=== PATIENT | male | born 1935 ===

== ENCOUNTER 2017-09-27 18:33 | Inpatient (IN) | payer MEDICARE ==
--- NOTE | 2017-09-27 19:13 | C.PDOC ---
History Of Present Illness 82 year old male presents to the ED for evaluation s/p fall 2 days ago. Patient states he was attempting to get up and then felt dizzy and fell. Fall was not witnessed and patient is unsure of possible LOC. Today he reports feeling very weak, nauseous, and dizzy. States he could barely get out of bed today. Also complaining of back pain, which is chronic in nature with no new changes. Patient tried to take blood pressure medication today but vomited it up. Denies any fever, chills, chest pain, SOB, urinary symptoms, numbness, or focal weakness. Time Seen by Provider: 09/27/17 19:12 Chief Complaint (Nursing): Dizziness/Lightheaded History Per: Patient History/Exam Limitations: no limitations Onset/Duration Of Symptoms: Days (x3) Current Symptoms Are (Timing): Still Present Activity At Onset Of Symptoms: Had Just Stood up Associated Symptoms Preceding Syncopal Episode: No Predromal Symptoms (Sudden Onset) Seizure Or Post-ictal Symptoms: None Fall Associated With With Symptoms: Yes Recent travel outside of the [place]: No Past Medical History Reviewed: Historical Data, Nursing Documentation, Vital Signs Vital Signs: Last Vital Signs Temp 98.2 F 09/27/17 19:06 Pulse 64 09/27/17 19:51 Resp 20 09/27/17 19:51 BP 177/63 H 09/27/17 19:51 Pulse Ox 98 09/27/17 21:23 - Medical History PMH: HTN Surgical History: No Surg Hx Family History: States: No Known Family Hx - Social History Hx Tobacco Use: No Hx Alcohol Use: No Hx Substance Use: No - Immunization History Hx Tetanus Toxoid Vaccination: No Hx Influenza Vaccination: No Hx Pneumococcal Vaccination: No Review Of Systems Constitutional: Positive for: Weakness. Negative for: Fever, Chills Cardiovascular: Negative for: Chest Pain Respiratory: Negative for: Shortness of Breath Gastrointestinal: Positive for: Nausea, Vomiting Musculoskeletal: Positive for: Back Pain Neurological: Positive for: Dizziness, Other (fall with possible LOC). Negative for: Weakness, Numbness Physical Exam - Physical Exam Appears: Non-toxic, No Acute Distress Skin: Warm, Dry Head: Normacephalic, No Laceration, Other (No evidence of trauma) Eye(s): bilateral: Normal Inspection Oral Mucosa: Moist Neck: Trachea Midline, Supple Chest: Symmetrical Cardiovascular: Rhythm Regular Respiratory: No Rales, No Rhonchi, No Wheezing Gastrointestinal/Abdominal: Soft, No Tenderness, No Distention Back: No Vertebral Tenderness, No Paraspinal Tenderness, No Other (step off deformity, or crepitus) Extremity: Normal ROM, No Pedal Edema, Capillary Refill (< 2 sec), Other (1 x 2 cm area of ecchymosis over lateral aspect of left bicep) Pulses: Left Dorsalis Pedis: Normal, Right Dorsalis Pedis: Normal Neurological/Psych: Oriented x3 ED Course And Treatment - Laboratory Results Result Diagrams: 09/27/17 19:42 09/27/17 19:42 ECG: Interpreted By Me, Viewed By Me ECG Rhythm: Sinus Rhythm (62), Nonspecific Changes O2 Sat by Pulse Oximetry: 98 Pulse Ox Interpretation: Normal - Radiology CXR: Interpreted by Me, Viewed By Me CXR Interpretation: Yes: Other (mild vasc congestion). No: Infiltrates, Fracture, Pnemothorax - CT Scan/US CT Head Other Rad Studies (CT/US): Read By Radiologist, Radiology Report Reviewed CT/US Interpretation: FINDINGS: BRAIN: Acute extra-axial hematoma overlying the right frontal lobe superolaterally, measuring 3.6 x. 0.7 x 3.2 cm, image 40 /series 4. This has a biconcave/lentiform shape, and it is suspicious for an. epidural versus subdural hematoma. No other significant abnormality identified. No evidence of acute intraventricular, subarachnoid, or. intraparenchymal hemorrhage. No evidence of midline shift, ventricular effacement, basilar cistern. effacement, or other significant intracranial mass effect. VENTRICLES: See above. BONES/JOINTS: No acute fractures or other acute bony abnormality noted. SOFT TISSUES: No acute abnormality of the visualized soft tissues is seen. SINUSES: Visualized paranasal sinuses appear clear. MASTOID AIR CELLS: Small amount of fluid in the left mastoid air cells inferiorly, compatible with. minimal mastoiditis. IMPRESSION: - 3.6 cm right frontal extra-axial hematoma, suspicious for an epidural versus subdural bleed. No significant associated mass effect. No fractures. - See above for remaining findings. Thank you for allowing us to participate in the care of your patient. Dictated and Authenticated by: Nidia Gracia MD. 09/27/2017 9: 18 PM Eastern Time ([place] & [place]) Progress Note: Ordered work-up including labs, CXR, EKG, and CT Head. Patient given IV fluids and Zofran Critical Care Time - Critical Care Note Total Time (in mins): 30 Documented critical care: time excludes all time spent performing seperately billable procedures. Disposition Discussed With DrJulianne: Luba Plaza Comment: accepted the pt on his service and took over the care at 10:30 PM Doctor Will See Patient In The: Hospital Counseled Patient/Family Regarding: Studies Performed, Diagnosis - Disposition Disposition: HOSPITALIZED Disposition Time: 19:13 Condition: FAIR Forms: [employer] (Danish) - POA Present On Arrival: Falls Or Trauma - Clinical Impression Clinical Impression: Dizziness, Subdural hematoma - Scribe Statement The provider has reviewed the documentation as recorded by the Luisa Almonte Provider Attestation: All medical record entries made by the Rodyibreji were at my direction and personally dictated by me. I have reviewed the chart and agree that the record accurately reflects my personal performance of the history, physical exam, medical decision making, and the department course for this patient. I have also personally directed, reviewed, and agree with the discharge instructions and disposition. Decision To Admit - Pt Status Changed To: Hospital Disposition Of: Inpatient - Admit Certification Admit to Inpatient:: After my assessment, the patient will require hospitalization for at least two midnights. This is because of the severity of symptoms shown, intensity of services needed, and/or the medical risk in this patient being treated as an outpatient. - InPatient: Physician Admission Certification: I certify that this patient requires 2 or more midnights of care for the following reason:: After my assessment, the patient will require hospitalization for at least two midnights. This is because of the severity of symptoms shown, intensity of services needed, and/or the medical risk in this patient being treated as an outpatient. - . Bed Request Type: Telemetry Admitting Physician: Luba Plaza Patient Diagnosis: Dizziness, Subdural hematoma
[2017-09-27 19:51] LABS: BASO % 0.4 % (0.0-2.0); EOS # 0.2 K/uL (0.0-0.7); EOS % 1.9 % (0.0-4.0); HEMOGLOBIN 11.5 g/dL (12.0-18.0); LYMPH # 1.7 K/uL (1.0-4.3); LYMPH % 17.1 % (20.0-40.0); MEAN CELL VOLUME 90.4 fL (80.0-94.0); MEAN CORPUSCULAR HEMOGLOBIN 30.7 pg (27.0-31.0); MEAN CORPUSCULAR HGB CONC 33.9 g/dL (33.0-37.0); MEAN PLATELET VOLUME 7.1 fL (7.2-11.7); MONO # 0.8 K/uL (0.0-0.8); NEUT # 7.4 K/uL (1.8-7.0); NEUT % 72.6 % (50.0-75.0); NRBC % 0.2 % (0.0-2.0); RBC 3.76 Mil/uL (4.40-5.90); RED CELL DISTRIBUTION WIDTH 12.3 % (11.5-14.5); WHITE BLOOD COUNT 10.2 K/uL (4.8-10.8)
[2017-09-27] MEDS ORDERED: Sodium Chloride 0.9% 1,000 ML ONE (19:55)
[2017-09-27 19:56] LABS: PROTHROMBIN TIME 11.1 SECONDS (9.7-12.2)
[2017-09-27 20:02] LABS: ALB/GLOB RATIO 1.1 (1.0-2.1); ALBUMIN 4.2 g/dL (3.5-5.0); CALCIUM 9.1 mg/dl (8.6-10.4); GFR AFRICAN-AMERICAN > 60; GFR NON-AFRICAN AMERICAN > 60; LIPASE 49 U/L (23-300)
[2017-09-27 20:03] LABS: ALT/SGPT 24 U/L (21-72); AST/SGOT 52 U/L (17-59); BLOOD UREA NITROGEN 14 mg/dL (9-20)
[2017-09-27 20:08] LABS: VENOUS BLOOD GAS PCO2 48 mmHg (40-60); VENOUS BLOOD GAS PO2 22 mm/Hg (30-55)
--- NOTE | 2017-09-27 21:18 | CT ---
EXAM: CT Head Without Intravenous Contrast EXAM DATE/TIME: 09/27/2017 7:14 PM CLINICAL HISTORY: 82 years old, male; Injury or trauma; Fall; Initial encounter; Blunt trauma (contusions or hematomas); Additional info: R/O bleed, fall TECHNIQUE: Axial computed tomography images of the head/brain without intravenous contrast. All CT scans at this facility use one or more dose reduction techniques, viz.: automated exposure control; ma/kV adjustment per patient size (including targeted exams where dose is matched to indication; i.e. head); or iterative reconstruction technique. Coronal and sagittal reformatted images were created and reviewed. COMPARISON: No relevant prior studies available. FINDINGS: BRAIN: Acute extra-axial hematoma overlying the right frontal lobe superolaterally, measuring 3.6 x 0.7 x 3.2 cm, image 40/series 4. This has a biconcave/lentiform shape, and it is suspicious for an epidural versus subdural hematoma. No other significant abnormality identified. No evidence of acute intraventricular, subarachnoid, or intraparenchymal hemorrhage. No evidence of midline shift, ventricular effacement, basilar cistern effacement, or other significant intracranial mass effect. VENTRICLES: See above. BONES/JOINTS: No acute fractures or other acute bony abnormality noted. SOFT TISSUES: No acute abnormality of the visualized soft tissues is seen. SINUSES: Visualized paranasal sinuses appear clear. MASTOID AIR CELLS: Small amount of fluid in the left mastoid air cells inferiorly, compatible with minimal mastoiditis. IMPRESSION: - 3.6 cm right frontal extra-axial hematoma, suspicious for an epidural versus subdural bleed. No significant associated mass effect. No fractures. - See above for remaining findings.
[2017-09-27 21:32] LABS: URINE BILIRUBIN NEGATIVE (NEGATIVE); URINE BLOOD NEGATIVE (NEGATIVE); URINE CLARITY Clear (Clear); URINE COLOR Yellow (YELLOW); URINE GLUCOSE (UA) NORMAL (Normal); URINE LEUKOCYTE ESTERASE NEG Leu/uL (Negative); URINE PROTEIN NEGATIVE (NEGATIVE); URINE UROBILINOGEN NORMAL mg/dL (0.2-1.0)
--- NOTE | 2017-09-27 23:33 | CP.PCM.CON ---
History of Present Illness - History of Present Illness History of Present Illness: 82 M with h/o htn, fell yesterday while going to bathroom when he felt dizzy, unwitnessed, needed help for family members to be picked up was fine afterwards , denied head injury, pain, this morning after he woke up could not walk. Complains of feeling dizzy, weak when he gets up, episodes of nausea and vomiting today. Patient in ER had head CT with right sided elliptical shape hematoma suggested on reading dd of subdural vs epidural, without pressure signs. Patient is awake, alert, following commands, including complex but unable to get up and walk, ambulation not tried due to patient being uncomfortable. PMH as above, chronic back pain PSH none Allergies NKDA Meds Coreg Family history not contributory Social Ex smoking, denied alcohol, lives with family. Review of Systems - Review of Systems All systems: reviewed and no additional remarkable complaints except (HPI) Past Patient History - Infectious Disease Hx of Infectious Diseases: None - Past Social History Smoking Status: Former Smoker Chewing Tobacco Use: No Cigar Use: No Alcohol: None Drugs: Denies Home Situation {Lives}: With Family - CARDIAC Hx Hypertension: Yes - PSYCHIATRIC Hx Substance Use: No - SURGICAL HISTORY Hx Surgeries: No - ANESTHESIA Hx Anesthesia: No Meds Allergies/Adverse Reactions: Allergies Allergy/AdvReac Type Severity Reaction Status Date / Time No Known Allergies Allergy Verified 09/27/17 18:47 - Medications Medications: Current Medications Sodium Chloride (Sodium Chloride 0.9%) 1,000 mls @ 100 mls/hr IV .Q10H HUMBERTO Physical Exam - Additional Findings Additional findings: * HEENT YADIRA * Neck supple, no rigidity * CVS regular, no gallop or rub, sinus on the monitor * Chest Clear, b/l * PA soft, nt, bs present * Ext no edema * [employer] B/l 5/5, Ext 5/5 b/l, no coordination difficulties b/l, speech normal, sensations normal, tone normal, plantars down going Results - Vital Signs Recent Vital Signs: Last Vital Signs Temp 98.2 F 09/27/17 19:06 Pulse 64 09/27/17 19:51 Resp 20 09/27/17 19:51 BP 177/63 H 09/27/17 19:51 Pulse Ox 98 09/27/17 22:31 - Labs Result Diagrams: 09/27/17 19:42 09/27/17 19:42 Labs: Laboratory Results - last 24 hr 09/27/17 09/27/17 09/27/17 19:03 19:42 19:42 WBC 10.2 RBC 3.76 L Hgb 11.5 L Hct 34.0 L MCV 90.4 MCH 30.7 MCHC 33.9 RDW 12.3 Plt Count 348 MPV 7.1 L Neut % (Auto) 72.6 Lymph % (Auto) 17.1 L [place] % (Auto) 8.0 Eos % (Auto) 1.9 Baso % (Auto) 0.4 Neut # (Auto) 7.4 H Lymph # (Auto) 1.7 [place] # (Auto) 0.8 Eos # (Auto) 0.2 Baso # (Auto) 0.0 PT INR APTT pO2 VBG pH VBG pCO2 VBG HCO3 VBG Total CO2 VBG O2 Sat (Calc) VBG Base Excess VBG Potassium Glucose Lactate Sodium 138 Potassium 4.4 Chloride 102 Carbon Dioxide 25 Anion Gap 16 BUN 14 Creatinine 0.7 L Est GFR ( Amer) > 60 Est GFR (Non-Af Amer) > 60 POC Glucose (mg/dL) 107 Random Glucose 107 Calcium 9.1 Magnesium 2.0 Total Bilirubin 0.9 AST 52 ALT 24 Alkaline Phosphatase 48 Troponin I < 0.0120 Total Protein 8.0 Albumin 4.2 Globulin 3.9 Albumin/Globulin Ratio 1.1 Lipase 49 Venous Blood Potassium Urine Color Urine Clarity Urine pH Ur Specific [place] Urine Protein Urine Glucose (UA) Urine Ketones Urine Blood Urine Nitrate Urine Bilirubin Urine Urobilinogen Ur Leukocyte Esterase Urine WBC (Auto) Urine RBC (Auto) 09/27/17 09/27/17 09/27/17 19:42 20:00 21:08 WBC RBC Hgb Hct MCV MCH MCHC RDW Plt Count MPV Neut % (Auto) Lymph % (Auto) [place] % (Auto) Eos % (Auto) Baso % (Auto) Neut # (Auto) Lymph # (Auto) [place] # (Auto) Eos # (Auto) Baso # (Auto) PT 11.1 INR 1.0 APTT 28 pO2 22 L VBG pH 7.40 VBG pCO2 48 VBG HCO3 26.4 VBG Total CO2 31.2 H VBG O2 Sat (Calc) 44.8 VBG Base Excess 4.0 H VBG Potassium 4.1 Glucose 108 Lactate 1.0 Sodium 139.0 Potassium Chloride 106.0 Carbon Dioxide Anion Gap BUN Creatinine Est GFR ( Amer) Est GFR (Non-Af Amer) POC Glucose (mg/dL) Random Glucose Calcium Magnesium Total Bilirubin AST ALT Alkaline Phosphatase Troponin I Total Protein Albumin Globulin Albumin/Globulin Ratio Lipase Venous Blood Potassium 4.1 Urine Color Yellow Urine Clarity Clear Urine pH 6.0 Ur Specific [place] 1.015 Urine Protein Negative Urine Glucose (UA) Normal Urine Ketones 1+ H Urine Blood Negative Urine Nitrate Negative Urine Bilirubin Negative Urine Urobilinogen Normal Ur Leukocyte Esterase Neg Urine WBC (Auto) 1 Urine RBC (Auto) < 1 Assessment & Plan - Assessment and Plan (Free Text) Assessment: * Elliptical IC bleeding, with clinical information, is slow subdural bleed rather epidural, and probably got worse overnight and hence symptoms, ambulatory dysfunction and dizzines and vomiting, significant brain atrophy, suspect slight efacement of the lateral ventrical on the right and some pressure symptoms, neuro surgery consulted, recommended repeat CT, neuro checks. * Fall seizure, aspiration precautions, keep head end elevated. * Gi/mechanical dvt prophylaxis * See orders for detail. Plan: See above Observe in ICU.
[2017-09-28] MEDS: Sodium Chloride 0.9% 1,000 ML IV SCH ×3 (02:07→16:01)
--- NOTE | 2017-09-28 05:06 | CT ---
EXAM: CT Head Without Intravenous Contrast CLINICAL HISTORY: 82 years old, male; Pain and signs and symptoms; Other: Subdural bleed; Patient HX: 09-27-17 images sent TECHNIQUE: Axial computed tomography images of the head/brain without intravenous contrast. All CT scans at this facility use one or more dose reduction techniques, viz.: automated exposure control; ma/kV adjustment per patient size (including targeted exams where dose is matched to indication; i.e. head); or iterative reconstruction technique. Coronal and sagittal reformatted images were created and reviewed. COMPARISON: CT - HEAD W/O CONTRAST 2017-09-27 19:41 FINDINGS: Brain: There is moderate diffuse cerebral atrophy present, consistent with this patient's age. Stable extra-axial hematoma along the RIGHT frontoparietal convexity measuring 7 mm. No midline shift. Ventricles: The ventricular system demonstrates mild diffuse compensatory enlargement. Bones/joints: Unremarkable. No acute fracture. Soft tissues: Unremarkable. Sinuses: Unremarkable as visualized. No acute sinusitis. Mastoid air cells: Unremarkable as visualized. No mastoid effusion. IMPRESSION: No significant interval change. Stable extra-axial hematoma along the RIGHT frontoparietal convexity.
[2017-09-28] MEDS ORDERED: Pantoprazole 40 mg Susp UD PO SCH (06:00)
[2017-09-28 06:32] LABS: BASO # 0.1 K/uL (0.0-0.2); BASO % 0.5 % (0.0-2.0); EOS # 0.1 K/uL (0.0-0.7); EOS % 1.4 % (0.0-4.0); HEMOGLOBIN 10.7 g/dL (12.0-18.0); LYMPH # 2.1 K/uL (1.0-4.3); LYMPH % 20.9 % (20.0-40.0); MEAN CELL VOLUME 90.9 fL (80.0-94.0); MEAN CORPUSCULAR HGB CONC 34.1 g/dL (33.0-37.0); MEAN PLATELET VOLUME 6.9 fL (7.2-11.7); MONO % 9.9 % (0.0-10.0); NEUT # 6.7 K/uL (1.8-7.0); NEUT % 67.3 % (50.0-75.0); RBC 3.44 Mil/uL (4.40-5.90); RED CELL DISTRIBUTION WIDTH 12.4 % (11.5-14.5)
[2017-09-28 06:46] LABS: ALB/GLOB RATIO 1.1 (1.0-2.1); ALBUMIN 3.5 g/dL (3.5-5.0); ALT/SGPT 21 U/L (21-72); AST/SGOT 39 U/L (17-59); BLOOD UREA NITROGEN 11 mg/dL (9-20); CALCIUM 8.8 mg/dl (8.6-10.4); GFR AFRICAN-AMERICAN > 60; GFR NON-AFRICAN AMERICAN > 60
[2017-09-28] MEDS: Pantoprazole 40 mg Susp UD PO SCH (10:21)
--- NOTE | 2017-09-28 10:40 | CP.CCUPN ---
<Cesario Amaya S - Last Filed: 09/28/17 14:36> CCU Subjective - Physician Review Subjective (Free Text): 09/28/17 10:30 Patient seen and examined. He is complaining of generalized weakness. Denies headache, dizziness, or other neurologic complaint at this point. CCU Objective - Vital Signs / Intake & Output Vital Signs (Last 4 hours): Vital Signs Temp Pulse Resp BP Pulse Ox 09/28/17 09:26 73 14 123/44 L 96 09/28/17 08:26 72 16 162/64 H 96 09/28/17 08:00 98.2 F 09/28/17 07:26 60 10 L 137/52 L 95 Intake and Output (Last 8hrs): Intake & Output 09/27/17 09/28/17 09/28/17 22:59 06:59 14:59 Intake Total 600 600 Output Total 300 0 Balance 300 600 Weight 180 lb 145 lb 8.081 oz Intake: Intake, IV Amount 600 400 Right Antecubital 600 400 Oral 200 Output: Urine 300 0 Urine, Voided 300 0 Other: # Bowel Movements 0 - Physical Exam Head: Positive for: Atraumatic, Normocephalic Pupils: Positive for: Sluggish Extroacular Muscles: Positive for: EOMI Conjunctiva: Positive for: Normal Mouth: Positive for: Moist Mucous Membranes Respiratory/Chest: Positive for: Clear to Auscultation. Negative for: Respiratory Distress, Wheezes, Rales, Rhonchi Cardiovascular: Positive for: Regular Rate and Rhythm, Normal S1, S2 Abdomen: Positive for: Normal Bowel Sounds. Negative for: Tenderness, Distention Upper Extremity: Positive for: Normal Inspection Lower Extremity: Positive for: Normal Inspection Neurological: Positive for: GCS=15, CN II-XII Intact, Other (4/5 muscle strength diffusely but no focal deficits) Skin: Positive for: Warm, Dry Psychiatric: Positive for: Alert - Medications Active Medications: Active Medications Generic Name Dose Route Start Last Admin Trade Name Freq PRN Reason Stop Dose Admin Carvedilol 6.25 mg 09/28/17 10:00 09/28/17 10:21 Coreg PO 6.25 mg BID HUMBERTO Administration Sodium Chloride 1,000 mls @ 100 mls/hr 09/27/17 19:15 09/28/17 06:30 Sodium Chloride 0.9% IV Not Given .Q10H HUMBERTO Pantoprazole Sodium 40 mg 09/28/17 10:00 09/28/17 10:21 Protonix Susp PO 40 mg DAILY HUMBERTO Administration - Patient Studies Lab Studies: Lab Studies 09/28/17 09/28/17 09/27/17 Range/Units 06:22 06:22 21:08 WBC 10.0 (4.8-10.8) K/uL RBC 3.44 L (4.40-5.90) Mil/uL Hgb 10.7 L (12.0-18.0) g/dL Hct 31.2 L (35.0-51.0) % MCV 90.9 (80.0-94.0) fL MCH 31.0 (27.0-31.0) pg MCHC 34.1 (33.0-37.0) g/dL RDW 12.4 (11.5-14.5) % Plt Count 344 (130-400) K/uL MPV 6.9 L (7.2-11.7) fL Neut % (Auto) 67.3 (50.0-75.0) % Lymph % (Auto) 20.9 (20.0-40.0) % Johnson % (Auto) 9.9 (0.0-10.0) % Eos % (Auto) 1.4 (0.0-4.0) % Baso % (Auto) 0.5 (0.0-2.0) % Neut # (Auto) 6.7 (1.8-7.0) K/uL Lymph # (Auto) 2.1 (1.0-4.3) K/uL Johnson # (Auto) 1.0 H (0.0-0.8) K/uL Eos # (Auto) 0.1 (0.0-0.7) K/uL Baso # (Auto) 0.1 (0.0-0.2) K/uL PT (9.7-12.2) SECONDS INR APTT (21-34) SECONDS pO2 (30-55) mm/Hg VBG pH (7.32-7.43) VBG pCO2 (40-60) mmHg VBG HCO3 mmol/L VBG Total CO2 (22-28) mmol/L VBG O2 Sat (Calc) (40-65) % VBG Base Excess (0.0-2.0) mmol/L VBG Potassium (3.6-5.2) mmol/L Glucose (75-110) mg/dl Lactate (0.7-2.1) mmol/L Sodium 139 (132-148) mmol/L Potassium 3.7 (3.6-5.2) mmol/L Chloride 105 (98-107) mmol/L Carbon Dioxide 24 (22-30) mmol/L Anion Gap 14 (10-20) BUN 11 (9-20) mg/dL Creatinine 0.7 L (0.8-1.5) mg/dL Est GFR ( Amer) > 60 Est GFR (Non-Af Amer) > 60 POC Glucose (mg/dL) (65-110) mg/dL Random Glucose 85 (75-110) mg/dL Calcium 8.8 (8.6-10.4) mg/dl Phosphorus 3.9 (2.5-4.5) mg/dL Magnesium 2.1 (1.6-2.3) mg/dL Total Bilirubin 0.7 (0.2-1.3) mg/dL AST 39 (17-59) U/L ALT 21 (21-72) U/L Alkaline Phosphatase 48 (38-126) U/L Troponin I (0.00-0.120) ng/mL Total Protein 6.8 (6.3-8.3) g/dL Albumin 3.5 (3.5-5.0) g/dL Globulin 3.3 (2.2-3.9) gm/dL Albumin/Globulin Ratio 1.1 (1.0-2.1) Lipase (23-300) U/L Venous Blood Potassium (3.6-5.2) mmol/L Urine Color Yellow (YELLOW) Urine Clarity Clear (Clear) Urine pH 6.0 (5.0-8.0) Ur Specific Mitchells 1.015 (1.003-1.030) Urine Protein Negative (NEGATIVE) mg/dL Urine Glucose (UA) Normal (Normal) mg/dL Urine Ketones 1+ H (NEGATIVE) mg/dL Urine Blood Negative (NEGATIVE) Urine Nitrate Negative (NEGATIVE) Urine Bilirubin Negative (NEGATIVE) Urine Urobilinogen Normal (0.2-1.0) mg/dL Ur Leukocyte Esterase Neg (Negative) Janette/uL Urine WBC (Auto) 1 (0-5) /hpf Urine RBC (Auto) < 1 (0-3) /hpf 09/27/17 09/27/17 09/27/17 Range/Units 20:00 19:42 19:42 WBC 10.2 (4.8-10.8) K/uL RBC 3.76 L (4.40-5.90) Mil/uL Hgb 11.5 L (12.0-18.0) g/dL Hct 34.0 L (35.0-51.0) % MCV 90.4 (80.0-94.0) fL MCH 30.7 (27.0-31.0) pg MCHC 33.9 (33.0-37.0) g/dL RDW 12.3 (11.5-14.5) % Plt Count 348 (130-400) K/uL MPV 7.1 L (7.2-11.7) fL Neut % (Auto) 72.6 (50.0-75.0) % Lymph % (Auto) 17.1 L (20.0-40.0) % Johnson % (Auto) 8.0 (0.0-10.0) % Eos % (Auto) 1.9 (0.0-4.0) % Baso % (Auto) 0.4 (0.0-2.0) % Neut # (Auto) 7.4 H (1.8-7.0) K/uL Lymph # (Auto) 1.7 (1.0-4.3) K/uL Johnson # (Auto) 0.8 (0.0-0.8) K/uL Eos # (Auto) 0.2 (0.0-0.7) K/uL Baso # (Auto) 0.0 (0.0-0.2) K/uL PT 11.1 (9.7-12.2) SECONDS INR 1.0 APTT 28 (21-34) SECONDS pO2 22 L (30-55) mm/Hg VBG pH 7.40 (7.32-7.43) VBG pCO2 48 (40-60) mmHg VBG HCO3 26.4 mmol/L VBG Total CO2 31.2 H (22-28) mmol/L VBG O2 Sat (Calc) 44.8 (40-65) % VBG Base Excess 4.0 H (0.0-2.0) mmol/L VBG Potassium 4.1 (3.6-5.2) mmol/L Glucose 108 (75-110) mg/dl Lactate 1.0 (0.7-2.1) mmol/L Sodium 139.0 (132-148) mmol/L Potassium (3.6-5.2) mmol/L Chloride 106.0 (98-107) mmol/L Carbon Dioxide (22-30) mmol/L Anion Gap (10-20) BUN (9-20) mg/dL Creatinine (0.8-1.5) mg/dL Est GFR ( Amer) Est GFR (Non-Af Amer) POC Glucose (mg/dL) (65-110) mg/dL Random Glucose (75-110) mg/dL Calcium (8.6-10.4) mg/dl Phosphorus (2.5-4.5) mg/dL Magnesium (1.6-2.3) mg/dL Total Bilirubin (0.2-1.3) mg/dL AST (17-59) U/L ALT (21-72) U/L Alkaline Phosphatase (38-126) U/L Troponin I (0.00-0.120) ng/mL Total Protein (6.3-8.3) g/dL Albumin (3.5-5.0) g/dL Globulin (2.2-3.9) gm/dL Albumin/Globulin Ratio (1.0-2.1) Lipase (23-300) U/L Venous Blood Potassium 4.1 (3.6-5.2) mmol/L Urine Color (YELLOW) Urine Clarity (Clear) Urine pH (5.0-8.0) Ur Specific Mitchells (1.003-1.030) Urine Protein (NEGATIVE) mg/dL Urine Glucose (UA) (Normal) mg/dL Urine Ketones (NEGATIVE) mg/dL Urine Blood (NEGATIVE) Urine Nitrate (NEGATIVE) Urine Bilirubin (NEGATIVE) Urine Urobilinogen (0.2-1.0) mg/dL Ur Leukocyte Esterase (Negative) Janette/uL Urine WBC (Auto) (0-5) /hpf Urine RBC (Auto) (0-3) /hpf 04/09/18 04/09/18 Range/Units 19:42 19:03 WBC (4.8-10.8) K/uL RBC (4.40-5.90) Mil/uL Hgb (12.0-18.0) g/dL Hct (35.0-51.0) % MCV (80.0-94.0) fL MCH (27.0-31.0) pg MCHC (33.0-37.0) g/dL RDW (11.5-14.5) % Plt Count (130-400) K/uL MPV (7.2-11.7) fL Neut % (Auto) (50.0-75.0) % Lymph % (Auto) (20.0-40.0) % Johnson % (Auto) (0.0-10.0) % Eos % (Auto) (0.0-4.0) % Baso % (Auto) (0.0-2.0) % Neut # (Auto) (1.8-7.0) K/uL Lymph # (Auto) (1.0-4.3) K/uL Johnson # (Auto) (0.0-0.8) K/uL Eos # (Auto) (0.0-0.7) K/uL Baso # (Auto) (0.0-0.2) K/uL PT (9.7-12.2) SECONDS INR APTT (21-34) SECONDS pO2 (30-55) mm/Hg VBG pH (7.32-7.43) VBG pCO2 (40-60) mmHg VBG HCO3 mmol/L VBG Total CO2 (22-28) mmol/L VBG O2 Sat (Calc) (40-65) % VBG Base Excess (0.0-2.0) mmol/L VBG Potassium (3.6-5.2) mmol/L Glucose (75-110) mg/dl Lactate (0.7-2.1) mmol/L Sodium 138 (132-148) mmol/L Potassium 4.4 (3.6-5.2) mmol/L Chloride 102 (98-107) mmol/L Carbon Dioxide 25 (22-30) mmol/L Anion Gap 16 (10-20) BUN 14 (9-20) mg/dL Creatinine 0.7 L (0.8-1.5) mg/dL Est GFR ( Amer) > 60 Est GFR (Non-Af Amer) > 60 POC Glucose (mg/dL) 107 (65-110) mg/dL Random Glucose 107 (75-110) mg/dL Calcium 9.1 (8.6-10.4) mg/dl Phosphorus (2.5-4.5) mg/dL Magnesium 2.0 (1.6-2.3) mg/dL Total Bilirubin 0.9 (0.2-1.3) mg/dL AST 52 (17-59) U/L ALT 24 (21-72) U/L Alkaline Phosphatase 48 (38-126) U/L Troponin I < 0.0120 (0.00-0.120) ng/mL Total Protein 8.0 (6.3-8.3) g/dL Albumin 4.2 (3.5-5.0) g/dL Globulin 3.9 (2.2-3.9) gm/dL Albumin/Globulin Ratio 1.1 (1.0-2.1) Lipase 49 (23-300) U/L Venous Blood Potassium (3.6-5.2) mmol/L Urine Color (YELLOW) Urine Clarity (Clear) Urine pH (5.0-8.0) Ur Specific Mitchells (1.003-1.030) Urine Protein (NEGATIVE) mg/dL Urine Glucose (UA) (Normal) mg/dL Urine Ketones (NEGATIVE) mg/dL Urine Blood (NEGATIVE) Urine Nitrate (NEGATIVE) Urine Bilirubin (NEGATIVE) Urine Urobilinogen (0.2-1.0) mg/dL Ur Leukocyte Esterase (Negative) Janette/uL Urine WBC (Auto) (0-5) /hpf Urine RBC (Auto) (0-3) /hpf Laboratory Results - last 24 hr 09/27/17 09/27/17 09/27/17 19:03 19:42 19:42 WBC 10.2 RBC 3.76 L Hgb 11.5 L Hct 34.0 L MCV 90.4 MCH 30.7 MCHC 33.9 RDW 12.3 Plt Count 348 MPV 7.1 L Neut % (Auto) 72.6 Lymph % (Auto) 17.1 L Johnson % (Auto) 8.0 Eos % (Auto) 1.9 Baso % (Auto) 0.4 Neut # (Auto) 7.4 H Lymph # (Auto) 1.7 Johnson # (Auto) 0.8 Eos # (Auto) 0.2 Baso # (Auto) 0.0 PT INR APTT pO2 VBG pH VBG pCO2 VBG HCO3 VBG Total CO2 VBG O2 Sat (Calc) VBG Base Excess VBG Potassium Glucose Lactate Sodium 138 Potassium 4.4 Chloride 102 Carbon Dioxide 25 Anion Gap 16 BUN 14 Creatinine 0.7 L Est GFR ( Amer) > 60 Est GFR (Non-Af Amer) > 60 POC Glucose (mg/dL) 107 Random Glucose 107 Calcium 9.1 Phosphorus Magnesium 2.0 Total Bilirubin 0.9 AST 52 ALT 24 Alkaline Phosphatase 48 Troponin I < 0.0120 Total Protein 8.0 Albumin 4.2 Globulin 3.9 Albumin/Globulin Ratio 1.1 Lipase 49 Venous Blood Potassium Urine Color Urine Clarity Urine pH Ur Specific Mitchells Urine Protein Urine Glucose (UA) Urine Ketones Urine Blood Urine Nitrate Urine Bilirubin Urine Urobilinogen Ur Leukocyte Esterase Urine WBC (Auto) Urine RBC (Auto) 09/27/17 09/27/17 09/27/17 19:42 20:00 21:08 WBC RBC Hgb Hct MCV MCH MCHC RDW Plt Count MPV Neut % (Auto) Lymph % (Auto) Johnson % (Auto) Eos % (Auto) Baso % (Auto) Neut # (Auto) Lymph # (Auto) Johnson # (Auto) Eos # (Auto) Baso # (Auto) PT 11.1 INR 1.0 APTT 28 pO2 22 L VBG pH 7.40 VBG pCO2 48 VBG HCO3 26.4 VBG Total CO2 31.2 H VBG O2 Sat (Calc) 44.8 VBG Base Excess 4.0 H VBG Potassium 4.1 Glucose 108 Lactate 1.0 Sodium 139.0 Potassium Chloride 106.0 Carbon Dioxide Anion Gap BUN Creatinine Est GFR ( Amer) Est GFR (Non-Af Amer) POC Glucose (mg/dL) Random Glucose Calcium Phosphorus Magnesium Total Bilirubin AST ALT Alkaline Phosphatase Troponin I Total Protein Albumin Globulin Albumin/Globulin Ratio Lipase Venous Blood Potassium 4.1 Urine Color Yellow Urine Clarity Clear Urine pH 6.0 Ur Specific Mitchells 1.015 Urine Protein Negative Urine Glucose (UA) Normal Urine Ketones 1+ H Urine Blood Negative Urine Nitrate Negative Urine Bilirubin Negative Urine Urobilinogen Normal Ur Leukocyte Esterase Neg Urine WBC (Auto) 1 Urine RBC (Auto) < 1 09/28/17 09/28/17 06:22 06:22 WBC 10.0 RBC 3.44 L Hgb 10.7 L Hct 31.2 L MCV 90.9 MCH 31.0 MCHC 34.1 RDW 12.4 Plt Count 344 MPV 6.9 L Neut % (Auto) 67.3 Lymph % (Auto) 20.9 Johnson % (Auto) 9.9 Eos % (Auto) 1.4 Baso % (Auto) 0.5 Neut # (Auto) 6.7 Lymph # (Auto) 2.1 Johnson # (Auto) 1.0 H Eos # (Auto) 0.1 Baso # (Auto) 0.1 PT INR APTT pO2 VBG pH VBG pCO2 VBG HCO3 VBG Total CO2 VBG O2 Sat (Calc) VBG Base Excess VBG Potassium Glucose Lactate Sodium 139 Potassium 3.7 Chloride 105 Carbon Dioxide 24 Anion Gap 14 BUN 11 Creatinine 0.7 L Est GFR ( Amer) > 60 Est GFR (Non-Af Amer) > 60 POC Glucose (mg/dL) Random Glucose 85 Calcium 8.8 Phosphorus 3.9 Magnesium 2.1 Total Bilirubin 0.7 AST 39 ALT 21 Alkaline Phosphatase 48 Troponin I Total Protein 6.8 Albumin 3.5 Globulin 3.3 Albumin/Globulin Ratio 1.1 Lipase Venous Blood Potassium Urine Color Urine Clarity Urine pH Ur Specific Mitchells Urine Protein Urine Glucose (UA) Urine Ketones Urine Blood Urine Nitrate Urine Bilirubin Urine Urobilinogen Ur Leukocyte Esterase Urine WBC (Auto) Urine RBC (Auto) EKG/Cardiology Studies: Cardiology / EKG Studies 09/27/17 18:57 EKG [ELECTROCARDIOGRAM] Stat Comment: Mode Of Transportation: PORTABLE Reason For Exam: Dizziness Fingerstick Blood Sugar Results: 107 Critical Care Progress Note - Nutrition Nutrition: Nutrition Category Date Time Status Heart Healthy Diet [DIET] Diets 09/28/17 Breakfast Active Assessment/Plan - Assessment and Plan (Free Text) Assessment: This is an 82 year old male with PMHx hypertension who presented with subdural bleeding on the right side. Neuro Awake, Verbal Continue to monitor with neurochecks Cardio Coreg 6.25 mg PO BID Pulm Saturating well on room air GI Heart Healthy Diet Protonix 40 mg PO daily Heme/onc Continue to monitor H/H Prophylaxis VTE contraindicated due to bleed Protonix 40 mg PO daily NS 100cc/hr Dispo: Continue to monitor in the ICU for now. Seen and Discussed with Dr. Ware <Presley Ware - Last Filed: 09/28/17 16:50> CCU Objective - Vital Signs / Intake & Output Vital Signs (Last 4 hours): Vital Signs Pulse Resp BP Pulse Ox 09/28/17 16:26 61 11 L 123/55 L 96 09/28/17 15:26 59 L 10 L 118/50 L 97 09/28/17 14:26 61 10 L 109/45 L 97 09/28/17 13:26 68 14 100/39 L 96 09/28/17 13:21 68 97 Intake and Output (Last 8hrs): Intake & Output 09/28/17 09/28/17 09/28/17 06:59 14:59 22:59 Intake Total 600 700 Output Total 300 0 Balance 300 700 Weight 145 lb 8.081 oz Intake: Intake, IV Amount 600 500 Right Antecubital 600 500 Oral 200 Output: Urine 300 0 Urine, Voided 300 0 Other: # Bowel Movements 0 - Medications Active Medications: Active Medications Generic Name Dose Route Start Last Admin Trade Name Freq PRN Reason Stop Dose Admin Carvedilol 6.25 mg 09/28/17 10:00 09/28/17 10:21 Coreg PO 6.25 mg BID HUMBERTO Administration Sodium Chloride 1,000 mls @ 100 mls/hr 09/27/17 19:15 09/28/17 16:01 Sodium Chloride 0.9% IV 100 mls/hr .Q10H HUMBERTO Administration Pantoprazole Sodium 40 mg 09/28/17 10:00 09/28/17 10:21 Protonix Susp PO 40 mg DAILY HUMBERTO Administration - Patient Studies Lab Studies: Lab Studies 09/28/17 09/28/17 09/27/17 Range/Units 06:22 06:22 21:08 WBC 10.0 (4.8-10.8) K/uL RBC 3.44 L (4.40-5.90) Mil/uL Hgb 10.7 L (12.0-18.0) g/dL Hct 31.2 L (35.0-51.0) % MCV 90.9 (80.0-94.0) fL MCH 31.0 (27.0-31.0) pg MCHC 34.1 (33.0-37.0) g/dL RDW 12.4 (11.5-14.5) % Plt Count 344 (130-400) K/uL MPV 6.9 L (7.2-11.7) fL Neut % (Auto) 67.3 (50.0-75.0) % Lymph % (Auto) 20.9 (20.0-40.0) % Johnson % (Auto) 9.9 (0.0-10.0) % Eos % (Auto) 1.4 (0.0-4.0) % Baso % (Auto) 0.5 (0.0-2.0) % Neut # (Auto) 6.7 (1.8-7.0) K/uL Lymph # (Auto) 2.1 (1.0-4.3) K/uL Johnson # (Auto) 1.0 H (0.0-0.8) K/uL Eos # (Auto) 0.1 (0.0-0.7) K/uL Baso # (Auto) 0.1 (0.0-0.2) K/uL PT (9.7-12.2) SECONDS INR APTT (21-34) SECONDS pO2 (30-55) mm/Hg VBG pH (7.32-7.43) VBG pCO2 (40-60) mmHg VBG HCO3 mmol/L VBG Total CO2 (22-28) mmol/L VBG O2 Sat (Calc) (40-65) % VBG Base Excess (0.0-2.0) mmol/L VBG Potassium (3.6-5.2) mmol/L Glucose (75-110) mg/dl Lactate (0.7-2.1) mmol/L Sodium 139 (132-148) mmol/L Potassium 3.7 (3.6-5.2) mmol/L Chloride 105 (98-107) mmol/L Carbon Dioxide 24 (22-30) mmol/L Anion Gap 14 (10-20) BUN 11 (9-20) mg/dL Creatinine 0.7 L (0.8-1.5) mg/dL Est GFR ( Amer) > 60 Est GFR (Non-Af Amer) > 60 POC Glucose (mg/dL) (65-110) mg/dL Random Glucose 85 (75-110) mg/dL Calcium 8.8 (8.6-10.4) mg/dl Phosphorus 3.9 (2.5-4.5) mg/dL Magnesium 2.1 (1.6-2.3) mg/dL Total Bilirubin 0.7 (0.2-1.3) mg/dL AST 39 (17-59) U/L ALT 21 (21-72) U/L Alkaline Phosphatase 48 (38-126) U/L Troponin I (0.00-0.120) ng/mL Total Protein 6.8 (6.3-8.3) g/dL Albumin 3.5 (3.5-5.0) g/dL Globulin 3.3 (2.2-3.9) gm/dL Albumin/Globulin Ratio 1.1 (1.0-2.1) Lipase (23-300) U/L Venous Blood Potassium (3.6-5.2) mmol/L Urine Color Yellow (YELLOW) Urine Clarity Clear (Clear) Urine pH 6.0 (5.0-8.0) Ur Specific Mitchells 1.015 (1.003-1.030) Urine Protein Negative (NEGATIVE) mg/dL Urine Glucose (UA) Normal (Normal) mg/dL Urine Ketones 1+ H (NEGATIVE) mg/dL Urine Blood Negative (NEGATIVE) Urine Nitrate Negative (NEGATIVE) Urine Bilirubin Negative (NEGATIVE) Urine Urobilinogen Normal (0.2-1.0) mg/dL Ur Leukocyte Esterase Neg (Negative) Janette/uL Urine WBC (Auto) 1 (0-5) /hpf Urine RBC (Auto) < 1 (0-3) /hpf 09/27/17 09/27/17 09/27/17 Range/Units 20:00 19:42 19:42 WBC 10.2 (4.8-10.8) K/uL RBC 3.76 L (4.40-5.90) Mil/uL Hgb 11.5 L (12.0-18.0) g/dL Hct 34.0 L (35.0-51.0) % MCV 90.4 (80.0-94.0) fL MCH 30.7 (27.0-31.0) pg MCHC 33.9 (33.0-37.0) g/dL RDW 12.3 (11.5-14.5) % Plt Count 348 (130-400) K/uL MPV 7.1 L (7.2-11.7) fL Neut % (Auto) 72.6 (50.0-75.0) % Lymph % (Auto) 17.1 L (20.0-40.0) % Johnson % (Auto) 8.0 (0.0-10.0) % Eos % (Auto) 1.9 (0.0-4.0) % Baso % (Auto) 0.4 (0.0-2.0) % Neut # (Auto) 7.4 H (1.8-7.0) K/uL Lymph # (Auto) 1.7 (1.0-4.3) K/uL Johnson # (Auto) 0.8 (0.0-0.8) K/uL Eos # (Auto) 0.2 (0.0-0.7) K/uL Baso # (Auto) 0.0 (0.0-0.2) K/uL PT 11.1 (9.7-12.2) SECONDS INR 1.0 APTT 28 (21-34) SECONDS pO2 22 L (30-55) mm/Hg VBG pH 7.40 (7.32-7.43) VBG pCO2 48 (40-60) mmHg VBG HCO3 26.4 mmol/L VBG Total CO2 31.2 H (22-28) mmol/L VBG O2 Sat (Calc) 44.8 (40-65) % VBG Base Excess 4.0 H (0.0-2.0) mmol/L VBG Potassium 4.1 (3.6-5.2) mmol/L Glucose 108 (75-110) mg/dl Lactate 1.0 (0.7-2.1) mmol/L Sodium 139.0 (132-148) mmol/L Potassium (3.6-5.2) mmol/L Chloride 106.0 (98-107) mmol/L Carbon Dioxide (22-30) mmol/L Anion Gap (10-20) BUN (9-20) mg/dL Creatinine (0.8-1.5) mg/dL Est GFR ( Amer) Est GFR (Non-Af Amer) POC Glucose (mg/dL) (65-110) mg/dL Random Glucose (75-110) mg/dL Calcium (8.6-10.4) mg/dl Phosphorus (2.5-4.5) mg/dL Magnesium (1.6-2.3) mg/dL Total Bilirubin (0.2-1.3) mg/dL AST (17-59) U/L ALT (21-72) U/L Alkaline Phosphatase (38-126) U/L Troponin I (0.00-0.120) ng/mL Total Protein (6.3-8.3) g/dL Albumin (3.5-5.0) g/dL Globulin (2.2-3.9) gm/dL Albumin/Globulin Ratio (1.0-2.1) Lipase (23-300) U/L Venous Blood Potassium 4.1 (3.6-5.2) mmol/L Urine Color (YELLOW) Urine Clarity (Clear) Urine pH (5.0-8.0) Ur Specific Mitchells (1.003-1.030) Urine Protein (NEGATIVE) mg/dL Urine Glucose (UA) (Normal) mg/dL Urine Ketones (NEGATIVE) mg/dL Urine Blood (NEGATIVE) Urine Nitrate (NEGATIVE) Urine Bilirubin (NEGATIVE) Urine Urobilinogen (0.2-1.0) mg/dL Ur Leukocyte Esterase (Negative) Janette/uL Urine WBC (Auto) (0-5) /hpf Urine RBC (Auto) (0-3) /hpf 09/27/17 09/27/17 Range/Units 19:42 19:03 WBC (4.8-10.8) K/uL RBC (4.40-5.90) Mil/uL Hgb (12.0-18.0) g/dL Hct (35.0-51.0) % MCV (80.0-94.0) fL MCH (27.0-31.0) pg MCHC (33.0-37.0) g/dL RDW (11.5-14.5) % Plt Count (130-400) K/uL MPV (7.2-11.7) fL Neut % (Auto) (50.0-75.0) % Lymph % (Auto) (20.0-40.0) % Johnson % (Auto) (0.0-10.0) % Eos % (Auto) (0.0-4.0) % Baso % (Auto) (0.0-2.0) % Neut # (Auto) (1.8-7.0) K/uL Lymph # (Auto) (1.0-4.3) K/uL Johnson # (Auto) (0.0-0.8) K/uL Eos # (Auto) (0.0-0.7) K/uL Baso # (Auto) (0.0-0.2) K/uL PT (9.7-12.2) SECONDS INR APTT (21-34) SECONDS pO2 (30-55) mm/Hg VBG pH (7.32-7.43) VBG pCO2 (40-60) mmHg VBG HCO3 mmol/L VBG Total CO2 (22-28) mmol/L VBG O2 Sat (Calc) (40-65) % VBG Base Excess (0.0-2.0) mmol/L VBG Potassium (3.6-5.2) mmol/L Glucose (75-110) mg/dl Lactate (0.7-2.1) mmol/L Sodium 138 (132-148) mmol/L Potassium 4.4 (3.6-5.2) mmol/L Chloride 102 (98-107) mmol/L Carbon Dioxide 25 (22-30) mmol/L Anion Gap 16 (10-20) BUN 14 (9-20) mg/dL Creatinine 0.7 L (0.8-1.5) mg/dL Est GFR ( Amer) > 60 Est GFR (Non-Af Amer) > 60 POC Glucose (mg/dL) 107 (65-110) mg/dL Random Glucose 107 (75-110) mg/dL Calcium 9.1 (8.6-10.4) mg/dl Phosphorus (2.5-4.5) mg/dL Magnesium 2.0 (1.6-2.3) mg/dL Total Bilirubin 0.9 (0.2-1.3) mg/dL AST 52 (17-59) U/L ALT 24 (21-72) U/L Alkaline Phosphatase 48 (38-126) U/L Troponin I < 0.0120 (0.00-0.120) ng/mL Total Protein 8.0 (6.3-8.3) g/dL Albumin 4.2 (3.5-5.0) g/dL Globulin 3.9 (2.2-3.9) gm/dL Albumin/Globulin Ratio 1.1 (1.0-2.1) Lipase 49 (23-300) U/L Venous Blood Potassium (3.6-5.2) mmol/L Urine Color (YELLOW) Urine Clarity (Clear) Urine pH (5.0-8.0) Ur Specific Mitchells (1.003-1.030) Urine Protein (NEGATIVE) mg/dL Urine Glucose (UA) (Normal) mg/dL Urine Ketones (NEGATIVE) mg/dL Urine Blood (NEGATIVE) Urine Nitrate (NEGATIVE) Urine Bilirubin (NEGATIVE) Urine Urobilinogen (0.2-1.0) mg/dL Ur Leukocyte Esterase (Negative) Janette/uL Urine WBC (Auto) (0-5) /hpf Urine RBC (Auto) (0-3) /hpf Laboratory Results - last 24 hr 09/27/17 09/27/17 09/27/17 19:03 19:42 19:42 WBC 10.2 RBC 3.76 L Hgb 11.5 L Hct 34.0 L MCV 90.4 MCH 30.7 MCHC 33.9 RDW 12.3 Plt Count 348 MPV 7.1 L Neut % (Auto) 72.6 Lymph % (Auto) 17.1 L Johnson % (Auto) 8.0 Eos % (Auto) 1.9 Baso % (Auto) 0.4 Neut # (Auto) 7.4 H Lymph # (Auto) 1.7 Johnson # (Auto) 0.8 Eos # (Auto) 0.2 Baso # (Auto) 0.0 PT INR APTT pO2 VBG pH VBG pCO2 VBG HCO3 VBG Total CO2 VBG O2 Sat (Calc) VBG Base Excess VBG Potassium Glucose Lactate Sodium 138 Potassium 4.4 Chloride 102 Carbon Dioxide 25 Anion Gap 16 BUN 14 Creatinine 0.7 L Est GFR ( Amer) > 60 Est GFR (Non-Af Amer) > 60 POC Glucose (mg/dL) 107 Random Glucose 107 Calcium 9.1 Phosphorus Magnesium 2.0 Total Bilirubin 0.9 AST 52 ALT 24 Alkaline Phosphatase 48 Troponin I < 0.0120 Total Protein 8.0 Albumin 4.2 Globulin 3.9 Albumin/Globulin Ratio 1.1 Lipase 49 Venous Blood Potassium Urine Color Urine Clarity Urine pH Ur Specific Mitchells Urine Protein Urine Glucose (UA) Urine Ketones Urine Blood Urine Nitrate Urine Bilirubin Urine Urobilinogen Ur Leukocyte Esterase Urine WBC (Auto) Urine RBC (Auto) 09/27/17 09/27/17 09/27/17 19:42 20:00 21:08 WBC RBC Hgb Hct MCV MCH MCHC RDW Plt Count MPV Neut % (Auto) Lymph % (Auto) Johnson % (Auto) Eos % (Auto) Baso % (Auto) Neut # (Auto) Lymph # (Auto) Johnson # (Auto) Eos # (Auto) Baso # (Auto) PT 11.1 INR 1.0 APTT 28 pO2 22 L VBG pH 7.40 VBG pCO2 48 VBG HCO3 26.4 VBG Total CO2 31.2 H VBG O2 Sat (Calc) 44.8 VBG Base Excess 4.0 H VBG Potassium 4.1 Glucose 108 Lactate 1.0 Sodium 139.0 Potassium Chloride 106.0 Carbon Dioxide Anion Gap BUN Creatinine Est GFR ( Amer) Est GFR (Non-Af Amer) POC Glucose (mg/dL) Random Glucose Calcium Phosphorus Magnesium Total Bilirubin AST ALT Alkaline Phosphatase Troponin I Total Protein Albumin Globulin Albumin/Globulin Ratio Lipase Venous Blood Potassium 4.1 Urine Color Yellow Urine Clarity Clear Urine pH 6.0 Ur Specific Mitchell[place] 1.015 Urine Protein Negative Urine Glucose (UA) Normal Urine Ketones 1+ H Urine Blood Negative Urine Nitrate Negative Urine Bilirubin Negative Urine Urobilinogen Normal Ur Leukocyte Esterase Neg Urine WBC (Auto) 1 Urine RBC (Auto) < 1 09/28/17 09/28/17 06:22 06:22 WBC 10.0 RBC 3.44 L Hgb 10.7 L Hct 31.2 L MCV 90.9 MCH 31.0 MCHC 34.1 RDW 12.4 Plt Count 344 MPV 6.9 L Neut % (Auto) 67.3 Lymph % (Auto) 20.9 Johnson % (Auto) 9.9 Eos % (Auto) 1.4 Baso % (Auto) 0.5 Neut # (Auto) 6.7 Lymph # (Auto) 2.1 Johnson # (Auto) 1.0 H Eos # (Auto) 0.1 Baso # (Auto) 0.1 PT INR APTT pO2 VBG pH VBG pCO2 VBG HCO3 VBG Total CO2 VBG O2 Sat (Calc) VBG Base Excess VBG Potassium Glucose Lactate Sodium 139 Potassium 3.7 Chloride 105 Carbon Dioxide 24 Anion Gap 14 BUN 11 Creatinine 0.7 L Est GFR ( Amer) > 60 Est GFR (Non-Af Amer) > 60 POC Glucose (mg/dL) Random Glucose 85 Calcium 8.8 Phosphorus 3.9 Magnesium 2.1 Total Bilirubin 0.7 AST 39 ALT 21 Alkaline Phosphatase 48 Troponin I Total Protein 6.8 Albumin 3.5 Globulin 3.3 Albumin/Globulin Ratio 1.1 Lipase Venous Blood Potassium Urine Color Urine Clarity Urine pH Ur Specific Mitchells Urine Protein Urine Glucose (UA) Urine Ketones Urine Blood Urine Nitrate Urine Bilirubin Urine Urobilinogen Ur Leukocyte Esterase Urine WBC (Auto) Urine RBC (Auto) EKG/Cardiology Studies: Cardiology / EKG Studies 09/27/17 18:57 EKG [ELECTROCARDIOGRAM] Stat Comment: Mode Of Transportation: PORTABLE Reason For Exam: Dizziness Critical Care Progress Note - Nutrition Nutrition: Nutrition Category Date Time Status Heart Healthy Diet [DIET] Diets 09/28/17 Breakfast Active Attending/Attestation - Attestation I have personally seen and examined this patient.: Yes I have fully participated in the care of the patient.: Yes I have reviewed all pertinent clinical information: Yes Notes (Text): 09/28/17 16:49 Patient seen and examinedin the intensive care unit. No change in repeat CAT scan of head Seen by neurosurgery Stable for transfer to floor
--- NOTE | 2017-09-28 11:20 | RAD ---
PROCEDURE: CHEST RADIOGRAPH, 1 VIEW HISTORY: SOB COMPARISON: None FINDINGS: LUNGS: Clear. PLEURA: No pneumothorax or pleural fluid seen. CARDIOVASCULAR: No radiographic findings to suggest acute or significant cardiovascular disease. OSSEOUS STRUCTURES: No significant abnormalities. VISUALIZED UPPER ABDOMEN: Normal. OTHER FINDINGS: None. IMPRESSION: No active disease. Concordant results with the preliminary interpretation rendered by the emergency department physician procedure.
--- NOTE | 2017-09-28 16:09 | CP.PCM.PN ---
Subjective - Date & Time of Evaluation Date of Evaluation: 09/28/17 Time of Evaluation: 16:08 - Subjective Subjective: minimal r sdh no mass effect stable over 2ct studies no surgery indicated Objective - Vital Signs/Intake and Output Vital Signs (last 24 hours): Temp Pulse Resp BP Pulse Ox 98.2 F 68 14 132/49 L 97 09/28/17 08:00 09/28/17 13:21 09/28/17 11:26 09/28/17 11:26 09/28/17 13:21 Intake and Output: 09/28/17 09/28/17 06:59 18:59 Intake Total 600 700 Output Total 300 0 Balance 300 700 - Medications Medications: Current Medications Carvedilol (Coreg) 6.25 mg PO BID [facility] Last Admin: 09/28/17 10:21 Dose: 6.25 mg Sodium Chloride (Sodium Chloride 0.9%) 1,000 mls @ 100 mls/hr IV .Q10H [facility] Last Admin: 09/28/17 16:01 Dose: 100 mls/hr Pantoprazole Sodium (Protonix Susp) 40 mg PO DAILY [facility] Last Admin: 09/28/17 10:21 Dose: 40 mg - Labs Labs: 09/28/17 06:22 09/28/17 06:22 PT 11.1 SECONDS (9.7-12.2) 09/27/17 19:42 INR 1.0 09/27/17 19:42 APTT 28 SECONDS (21-34) 09/27/17 19:42
--- NOTE | 2017-09-28 17:07 | CARD ---
APPROVED REPORT EKG Measurement Heart [id number] <Conclusion> Normal sinus rhythm Normal ECG
--- NOTE | 2017-09-28 18:19 | CP.PCM.HP ---
Past Patient History - Infectious Disease Hx of Infectious Diseases: None - Past Medical History & Family History Past Medical History?: Yes - Past Social History Smoking Status: Never Smoked - CARDIAC Hx Hypertension: Yes - NEUROLOGICAL Other/Comment: SDH - HEENT Other/Comment: does not wear glasses - RENAL Hx Chronic Kidney Disease: No - MUSCULOSKELETAL/RHEUMATOLOGICAL Hx Back Pain: Yes Hx Falls: Yes - PSYCHIATRIC Hx Substance Use: No - SURGICAL HISTORY Hx Surgeries: No - ANESTHESIA Hx Anesthesia: No Meds Allergies/Adverse Reactions: Allergies Allergy/AdvReac Type Severity Reaction Status Date / Time No Known Allergies Allergy Verified 09/27/17 18:47 Physical Exam - Constitutional Appears: Well - Head Exam Head Exam: ATRAUMATIC, NORMAL INSPECTION, NORMOCEPHALIC - Eye Exam Eye Exam: EOMI, Normal appearance, PERRL Pupil Exam: NORMAL ACCOMODATION, PERRL - ENT Exam ENT Exam: Mucous Membranes Moist, Normal Exam - Neck Exam Neck exam: Positive for: Normal Inspection - Respiratory Exam Respiratory Exam: Decreased Breath Sounds - Cardiovascular Exam Cardiovascular Exam: REGULAR RHYTHM, +S1, +S2 - GI/Abdominal Exam GI & Abdominal Exam: Diminished Bowel Sounds, Soft - Rectal Exam Rectal Exam: Deferred Results - Vital Signs Recent Vital Signs: Last Vital Signs Temp 98.2 F 09/28/17 16:00 Pulse 77 09/28/17 17:33 Resp 15 09/28/17 17:33 BP 140/62 09/28/17 17:33 Pulse Ox 97 09/28/17 17:33 - Labs Result Diagrams: 09/28/17 06:22 09/28/17 06:22 Labs: Laboratory Results - last 24 hr 09/27/17 09/27/17 09/27/17 19:03 19:42 19:42 WBC 10.2 RBC 3.76 L Hgb 11.5 L Hct 34.0 L MCV 90.4 MCH 30.7 MCHC 33.9 RDW 12.3 Plt Count 348 MPV 7.1 L Neut % (Auto) 72.6 Lymph % (Auto) 17.1 L [place] % (Auto) 8.0 Eos % (Auto) 1.9 Baso % (Auto) 0.4 Neut # (Auto) 7.4 H Lymph # (Auto) 1.7 [place] # (Auto) 0.8 Eos # (Auto) 0.2 Baso # (Auto) 0.0 PT INR APTT pO2 VBG pH VBG pCO2 VBG HCO3 VBG Total CO2 VBG O2 Sat (Calc) VBG Base Excess VBG Potassium Glucose Lactate Sodium 138 Potassium 4.4 Chloride 102 Carbon Dioxide 25 Anion Gap 16 BUN 14 Creatinine 0.7 L Est GFR ( Amer) > 60 Est GFR (Non-Af Amer) > 60 POC Glucose (mg/dL) 107 Random Glucose 107 Calcium 9.1 Phosphorus Magnesium 2.0 Total Bilirubin 0.9 AST 52 ALT 24 Alkaline Phosphatase 48 Troponin I < 0.0120 Total Protein 8.0 Albumin 4.2 Globulin 3.9 Albumin/Globulin Ratio 1.1 Lipase 49 Venous Blood Potassium Urine Color Urine Clarity Urine pH Ur Specific [place] Urine Protein Urine Glucose (UA) Urine Ketones Urine Blood Urine Nitrate Urine Bilirubin Urine Urobilinogen Ur Leukocyte Esterase Urine WBC (Auto) Urine RBC (Auto) 09/27/17 09/27/17 09/27/17 19:42 20:00 21:08 WBC RBC Hgb Hct MCV MCH MCHC RDW Plt Count MPV Neut % (Auto) Lymph % (Auto) [place] % (Auto) Eos % (Auto) Baso % (Auto) Neut # (Auto) Lymph # (Auto) [place] # (Auto) Eos # (Auto) Baso # (Auto) PT 11.1 INR 1.0 APTT 28 pO2 22 L VBG pH 7.40 VBG pCO2 48 VBG HCO3 26.4 VBG Total CO2 31.2 H VBG O2 Sat (Calc) 44.8 VBG Base Excess 4.0 H VBG Potassium 4.1 Glucose 108 Lactate 1.0 Sodium 139.0 Potassium Chloride 106.0 Carbon Dioxide Anion Gap BUN Creatinine Est GFR ( Amer) Est GFR (Non-Af Amer) POC Glucose (mg/dL) Random Glucose Calcium Phosphorus Magnesium Total Bilirubin AST ALT Alkaline Phosphatase Troponin I Total Protein Albumin Globulin Albumin/Globulin Ratio Lipase Venous Blood Potassium 4.1 Urine Color Yellow Urine Clarity Clear Urine pH 6.0 Ur Specific [place] 1.015 Urine Protein Negative Urine Glucose (UA) Normal Urine Ketones 1+ H Urine Blood Negative Urine Nitrate Negative Urine Bilirubin Negative Urine Urobilinogen Normal Ur Leukocyte Esterase Neg Urine WBC (Auto) 1 Urine RBC (Auto) < 1 09/28/17 09/28/17 06:22 06:22 WBC 10.0 RBC 3.44 L Hgb 10.7 L Hct 31.2 L MCV 90.9 MCH 31.0 MCHC 34.1 RDW 12.4 Plt Count 344 MPV 6.9 L Neut % (Auto) 67.3 Lymph % (Auto) 20.9 [place] % (Auto) 9.9 Eos % (Auto) 1.4 Baso % (Auto) 0.5 Neut # (Auto) 6.7 Lymph # (Auto) 2.1 [place] # (Auto) 1.0 H Eos # (Auto) 0.1 Baso # (Auto) 0.1 PT INR APTT pO2 VBG pH VBG pCO2 VBG HCO3 VBG Total CO2 VBG O2 Sat (Calc) VBG Base Excess VBG Potassium Glucose Lactate Sodium 139 Potassium 3.7 Chloride 105 Carbon Dioxide 24 Anion Gap 14 BUN 11 Creatinine 0.7 L Est GFR ( Amer) > 60 Est GFR (Non-Af Amer) > 60 POC Glucose (mg/dL) Random Glucose 85 Calcium 8.8 Phosphorus 3.9 Magnesium 2.1 Total Bilirubin 0.7 AST 39 ALT 21 Alkaline Phosphatase 48 Troponin I Total Protein 6.8 Albumin 3.5 Globulin 3.3 Albumin/Globulin Ratio 1.1 Lipase Venous Blood Potassium Urine Color Urine Clarity Urine pH Ur Specific [place] Urine Protein Urine Glucose (UA) Urine Ketones Urine Blood Urine Nitrate Urine Bilirubin Urine Urobilinogen Ur Leukocyte Esterase Urine WBC (Auto) Urine RBC (Auto)
--- NOTE | 2017-09-29 06:47 | CP.PCM.CON ---
History of Present Illness - History of Present Illness History of Present Illness: CONSULT DICTATED S/P FALL - HEADACHE SDH RT FROTO PARIETAL WORSENING [place] MORNING REPEAT CAT NOW MRI/EEG Past Patient History - Infectious Disease Hx of Infectious Diseases: None - Past Medical History & Family History Past Medical History?: Yes - Past Social History Smoking Status: Never Smoked - CARDIAC Hx Hypertension: Yes - NEUROLOGICAL Other/Comment: SDH - HEENT Other/Comment: does not wear glasses - RENAL Hx Chronic Kidney Disease: No - MUSCULOSKELETAL/RHEUMATOLOGICAL Hx Back Pain: Yes Hx Falls: Yes - PSYCHIATRIC Hx Substance Use: No - SURGICAL HISTORY Hx Surgeries: No - ANESTHESIA Hx Anesthesia: No Meds Allergies/Adverse Reactions: Allergies Allergy/AdvReac Type Severity Reaction Status Date / Time No Known Allergies Allergy Verified 09/27/17 18:47 - Medications Medications: Current Medications Acetaminophen (Tylenol 325mg Tab) 650 mg PO Q6 PRN PRN Reason: Pain, moderate (4-7) Last Admin: 09/29/17 03:27 Dose: 650 mg Carvedilol (Coreg) 6.25 mg PO BID [facility] Last Admin: 09/28/17 17:34 Dose: 6.25 mg Pantoprazole Sodium (Protonix Susp) 40 mg PO DAILY [facility] Last Admin: 09/28/17 10:21 Dose: 40 mg Results - Vital Signs Recent Vital Signs: Last Vital Signs Temp 98.2 F 09/28/17 16:00 Pulse 84 09/29/17 03:00 Resp 17 09/29/17 03:00 BP 133/72 09/29/17 02:26 Pulse Ox 97 09/29/17 03:00 - Labs Result Diagrams: 09/28/17 06:22 09/28/17 06:22 Labs: Laboratory Results - last 24 hr 09/28/17 06:22 Sodium 139 Potassium 3.7 Chloride 105 Carbon Dioxide 24 Anion Gap 14 BUN 11 Creatinine 0.7 L Est GFR ( Amer) > 60 Est GFR (Non-Af Amer) > 60 Random Glucose 85 Calcium 8.8 Phosphorus 3.9 Magnesium 2.1 Total Bilirubin 0.7 AST 39 ALT 21 Alkaline Phosphatase 48 Total Protein 6.8 Albumin 3.5 Globulin 3.3 Albumin/Globulin Ratio 1.1
[2017-09-29 07:29] LABS: ALB/GLOB RATIO 1.1 (1.0-2.1); ALBUMIN 3.2 g/dL (3.5-5.0); ALT/SGPT 23 U/L (21-72); AST/SGOT 31 U/L (17-59); BLOOD UREA NITROGEN 10 mg/dL (9-20); GFR AFRICAN-AMERICAN > 60; GFR NON-AFRICAN AMERICAN > 60
[2017-09-29 07:34] LABS: BASO % 0.3 % (0.0-2.0); EOS # 0.2 K/uL (0.0-0.7); EOS % 2.3 % (0.0-4.0); HEMOGLOBIN 9.7 g/dL (12.0-18.0); LYMPH # 2.2 K/uL (1.0-4.3); LYMPH % 23.2 % (20.0-40.0); MEAN CELL VOLUME 91.3 fL (80.0-94.0); MEAN CORPUSCULAR HEMOGLOBIN 31.9 pg (27.0-31.0); MEAN CORPUSCULAR HGB CONC 34.9 g/dL (33.0-37.0); MEAN PLATELET VOLUME 7.4 fL (7.2-11.7); MONO % 10.6 % (0.0-10.0); NEUT # 6.1 K/uL (1.8-7.0); NEUT % 63.6 % (50.0-75.0); RBC 3.05 Mil/uL (4.40-5.90); RED CELL DISTRIBUTION WIDTH 12.5 % (11.5-14.5); WHITE BLOOD COUNT 9.6 K/uL (4.8-10.8)
--- NOTE | 2017-09-29 08:32 | CT ---
PROCEDURE: CT HEAD WITHOUT CONTRAST. HISTORY: worsening headache - SDH COMPARISON: CT head dated 09/28/2017. TECHNIQUE: Axial computed tomography images were obtained through the head/brain without intravenous contrast. Radiation dose: Total exam DLP = 1038.1 mGy-cm. This CT exam was performed using one or more of the following dose reduction techniques: Automated exposure control, adjustment of the mA and/or kV according to patient size, and/or use of iterative reconstruction technique. FINDINGS: HEMORRHAGE: Mild interval enlargement of subdural component of right extra-axial hemorrhage with more acute blood products layering along the posterior tentorium/ parieto-occipital convexity. BRAIN: No significant mass effect or sulcal effacement. No edema. Mild atrophy. Mild chronic microvascular ischemic changes. VENTRICLES: Mildly prominent. No hydrocephalus. CALVARIUM: Unremarkable. PARANASAL SINUSES: Unremarkable as visualized. No significant inflammatory changes. MASTOID AIR CELLS: Unremarkable as visualized. No inflammatory changes. OTHER FINDINGS: None. IMPRESSION: Mild interval enlargement of subdural component of right extra-axial hemorrhage with more acute blood products layering along the posterior tentorium/ parieto-occipital convexity. No other significant interval change.
[2017-09-29] MEDS: Pantoprazole 40 mg Susp UD PO SCH (11:12)
--- NOTE | 2017-09-29 11:32 | CP.CCUPN ---
<Cesario Amaya - Last Filed: 09/29/17 13:39> CCU Subjective - Physician Review Subjective (Free Text): 09/28/17 10:30 Patient seen and examined. He is complaining of generalized weakness. Denies headache, dizziness, or other neurologic complaint at this point. 09/29/17 11:29 Patient seen and examined. Patient complaining of worsened headache this morning. He was also a bit dizzy earlier, but this has since resolved. CCU Objective - Vital Signs / Intake & Output Vital Signs (Last 4 hours): Vital Signs Temp Pulse Resp BP Pulse Ox 09/29/17 11:04 74 14 118/57 L 96 09/29/17 11:00 60 12 95 09/29/17 10:25 70 12 134/57 L 97 09/29/17 10:19 77 11 L 102/58 L 98 09/29/17 10:15 69 14 146/52 L 96 09/29/17 10:00 64 11 L 95 09/29/17 09:27 60 10 L 117/41 L 96 09/29/17 09:00 65 13 97 09/29/17 08:26 69 13 150/59 L 96 09/29/17 08:00 98.4 F 74 97 Intake and Output (Last 8hrs): Intake & Output 09/28/17 09/29/17 09/29/17 22:59 06:59 14:59 Intake Total 740 120 300 Output Total 0 800 300 Balance 740 -680 0 Weight 145 lb 3 oz Intake: Intake, IV Amount 300 Right Antecubital 300 Oral 440 120 300 Output: Urine 0 800 300 Urine, Voided 0 800 300 - Physical Exam Head: Positive for: Atraumatic, Normocephalic Pupils: Positive for: Sluggish Extroacular Muscles: Positive for: EOMI Conjunctiva: Positive for: Normal Mouth: Positive for: Moist Mucous Membranes Respiratory/Chest: Positive for: Clear to Auscultation. Negative for: Respiratory Distress, Wheezes, Rales, Rhonchi Cardiovascular: Positive for: Regular Rate and Rhythm, Normal S1, S2 Abdomen: Positive for: Normal Bowel Sounds. Negative for: Tenderness, Distention Upper Extremity: Positive for: Normal Inspection Lower Extremity: Positive for: Normal Inspection Neurological: Positive for: GCS=15, CN II-XII Intact, Other (4/5 muscle strength diffusely but no focal deficits) Skin: Positive for: Warm, Dry Psychiatric: Positive for: Alert - Medications Active Medications: Active Medications Generic Name Dose Route Start Last Admin Trade Name Freq PRN Reason Stop Dose Admin Acetaminophen 650 mg 09/29/17 03:22 09/29/17 03:27 Tylenol 325mg Tab PO 650 mg Q6 PRN Administration Pain, moderate (4-7) Carvedilol 3.125 mg 09/29/17 11:30 Coreg PO BID [facility] Pantoprazole Sodium 40 mg 09/28/17 10:00 09/29/17 11:12 Protonix Susp PO 40 mg DAILY [facility] Administration - Patient Studies Lab Studies: Lab Studies 09/29/17 09/29/17 Range/Units 07:22 04:00 WBC 9.6 (4.8-10.8) K/uL RBC 3.05 L (4.40-5.90) Mil/uL Hgb 9.7 L (12.0-18.0) g/dL Hct 27.8 L (35.0-51.0) % MCV 91.3 (80.0-94.0) fL MCH 31.9 H (27.0-31.0) pg MCHC 34.9 (33.0-37.0) g/dL RDW 12.5 (11.5-14.5) % Plt Count 275 (130-400) K/uL MPV 7.4 (7.2-11.7) fL Neut % (Auto) 63.6 (50.0-75.0) % Lymph % (Auto) 23.2 (20.0-40.0) % [place] % (Auto) 10.6 H (0.0-10.0) % Eos % (Auto) 2.3 (0.0-4.0) % Baso % (Auto) 0.3 (0.0-2.0) % Neut # (Auto) 6.1 (1.8-7.0) K/uL Lymph # (Auto) 2.2 (1.0-4.3) K/uL [place] # (Auto) 1.0 H (0.0-0.8) K/uL Eos # (Auto) 0.2 (0.0-0.7) K/uL Baso # (Auto) 0.0 (0.0-0.2) K/uL Sodium 139 (132-148) mmol/L Potassium 3.7 (3.6-5.2) mmol/L Chloride 105 (98-107) mmol/L Carbon Dioxide 24 (22-30) mmol/L Anion Gap 13 (10-20) BUN 10 (9-20) mg/dL Creatinine 0.7 L (0.8-1.5) mg/dL Est GFR ( Amer) > 60 Est GFR (Non-Af Amer) > 60 Random Glucose 91 (75-110) mg/dL Calcium 8.0 L (8.6-10.4) mg/dl Phosphorus 3.4 (2.5-4.5) mg/dL Magnesium 1.9 (1.6-2.3) mg/dL Total Bilirubin 0.5 (0.2-1.3) mg/dL AST 31 (17-59) U/L ALT 23 (21-72) U/L Alkaline Phosphatase 41 (38-126) U/L Total Protein 6.2 L (6.3-8.3) g/dL Albumin 3.2 L (3.5-5.0) g/dL Globulin 3.0 (2.2-3.9) gm/dL Albumin/Globulin Ratio 1.1 (1.0-2.1) Laboratory Results - last 24 hr 09/29/17 09/29/17 04:00 07:22 WBC 9.6 RBC 3.05 L Hgb 9.7 L Hct 27.8 L MCV 91.3 MCH 31.9 H MCHC 34.9 RDW 12.5 Plt Count 275 MPV 7.4 Neut % (Auto) 63.6 Lymph % (Auto) 23.2 [place] % (Auto) 10.6 H Eos % (Auto) 2.3 Baso % (Auto) 0.3 Neut # (Auto) 6.1 Lymph # (Auto) 2.2 [place] # (Auto) 1.0 H Eos # (Auto) 0.2 Baso # (Auto) 0.0 Sodium 139 Potassium 3.7 Chloride 105 Carbon Dioxide 24 Anion Gap 13 BUN 10 Creatinine 0.7 L Est GFR ( Amer) > 60 Est GFR (Non-Af Amer) > 60 Random Glucose 91 Calcium 8.0 L Phosphorus 3.4 Magnesium 1.9 Total Bilirubin 0.5 AST 31 ALT 23 Alkaline Phosphatase 41 Total Protein 6.2 L Albumin 3.2 L Globulin 3.0 Albumin/Globulin Ratio 1.1 Fingerstick Blood Sugar Results: 107 Critical Care Progress Note - Nutrition Nutrition: Nutrition Category Date Time Status Heart Healthy Diet [DIET] Diets 09/28/17 Breakfast Active Assessment/Plan - Assessment and Plan (Free Text) Assessment: This is an 82 year old male with PMHx hypertension who presented with subdural bleeding on the right side. Neuro Awake, Verbal Continue to monitor with neurochecks Neurology consult with Dr. Mohr Repeat Head CT shows mild enlargement of subdural bleeding MRI shows confirmation of the enlargement. No midline shift. EEG ordered Cardio Coreg 3.125 mg PO BID Pulm Saturating well on room air GI Heart Healthy Diet Protonix 40 mg PO daily Heme/onc Continue to monitor H/H Prophylaxis VTE contraindicated due to bleed Protonix 40 mg PO daily NS 100cc/hr Dispo: Patient is stable to be downgraded to telemetry per neurology. Seen and Discussed with Dr. Ware <Presley Ware S - Last Filed: 09/29/17 16:10> CCU Objective - Vital Signs / Intake & Output Vital Signs (Last 4 hours): Vital Signs Pulse Resp BP Pulse Ox 09/29/17 15:40 107/42 L 09/29/17 15:39 67 10 L 92 L 09/29/17 15:00 62 11 L 96 09/29/17 14:38 62 11 L 100/42 L 96 09/29/17 14:00 69 14 96 09/29/17 13:38 62 12 120/49 L 96 09/29/17 13:00 71 13 97 09/29/17 12:39 69 20 164/67 H 97 09/29/17 12:34 69 19 Intake and Output (Last 8hrs): Intake & Output 09/29/17 09/29/17 09/29/17 06:59 14:59 22:59 Intake Total 120 550 0 Output Total 800 425 Balance -680 125 0 Weight 145 lb 3 oz Intake: Oral 120 550 0 Output: Urine 800 425 Urine, Voided 800 425 - Medications Active Medications: Active Medications Generic Name Dose Route Start Last Admin Trade Name Freq PRN Reason Stop Dose Admin Acetaminophen 650 mg 09/29/17 03:22 09/29/17 03:27 Tylenol 325mg Tab PO 650 mg Q6 PRN Administration Pain, moderate (4-7) Carvedilol 3.125 mg 09/29/17 11:30 09/29/17 11:38 Coreg PO 3.125 mg BID [facility] Administration Pantoprazole Sodium 40 mg 09/28/17 10:00 09/29/17 11:12 Protonix Susp PO 40 mg DAILY [facility] Administration - Patient Studies Lab Studies: Microbiology Studies 09/28/17 00:21 MRSA Culture (Admit) - Final Nose MRSA NOT DETECTED Lab Studies 09/29/17 09/29/17 Range/Units 07:22 04:00 WBC 9.6 (4.8-10.8) K/uL RBC 3.05 L (4.40-5.90) Mil/uL Hgb 9.7 L (12.0-18.0) g/dL Hct 27.8 L (35.0-51.0) % MCV 91.3 (80.0-94.0) fL MCH 31.9 H (27.0-31.0) pg MCHC 34.9 (33.0-37.0) g/dL RDW 12.5 (11.5-14.5) % Plt Count 275 (130-400) K/uL MPV 7.4 (7.2-11.7) fL Neut % (Auto) 63.6 (50.0-75.0) % Lymph % (Auto) 23.2 (20.0-40.0) % [place] % (Auto) 10.6 H (0.0-10.0) % Eos % (Auto) 2.3 (0.0-4.0) % Baso % (Auto) 0.3 (0.0-2.0) % Neut # (Auto) 6.1 (1.8-7.0) K/uL Lymph # (Auto) 2.2 (1.0-4.3) K/uL [place] # (Auto) 1.0 H (0.0-0.8) K/uL Eos # (Auto) 0.2 (0.0-0.7) K/uL Baso # (Auto) 0.0 (0.0-0.2) K/uL Sodium 139 (132-148) mmol/L Potassium 3.7 (3.6-5.2) mmol/L Chloride 105 (98-107) mmol/L Carbon Dioxide 24 (22-30) mmol/L Anion Gap 13 (10-20) BUN 10 (9-20) mg/dL Creatinine 0.7 L (0.8-1.5) mg/dL Est GFR ( Amer) > 60 Est GFR (Non-Af Amer) > 60 Random Glucose 91 (75-110) mg/dL Calcium 8.0 L (8.6-10.4) mg/dl Phosphorus 3.4 (2.5-4.5) mg/dL Magnesium 1.9 (1.6-2.3) mg/dL Total Bilirubin 0.5 (0.2-1.3) mg/dL AST 31 (17-59) U/L ALT 23 (21-72) U/L Alkaline Phosphatase 41 (38-126) U/L Total Protein 6.2 L (6.3-8.3) g/dL Albumin 3.2 L (3.5-5.0) g/dL Globulin 3.0 (2.2-3.9) gm/dL Albumin/Globulin Ratio 1.1 (1.0-2.1) Laboratory Results - last 24 hr 09/29/17 09/29/17 04:00 07:22 WBC 9.6 RBC 3.05 L Hgb 9.7 L Hct 27.8 L MCV 91.3 MCH 31.9 H MCHC 34.9 RDW 12.5 Plt Count 275 MPV 7.4 Neut % (Auto) 63.6 Lymph % (Auto) 23.2 [place] % (Auto) 10.6 H Eos % (Auto) 2.3 Baso % (Auto) 0.3 Neut # (Auto) 6.1 Lymph # (Auto) 2.2 [place] # (Auto) 1.0 H Eos # (Auto) 0.2 Baso # (Auto) 0.0 Sodium 139 Potassium 3.7 Chloride 105 Carbon Dioxide 24 Anion Gap 13 BUN 10 Creatinine 0.7 L Est GFR ( Amer) > 60 Est GFR (Non-Af Amer) > 60 Random Glucose 91 Calcium 8.0 L Phosphorus 3.4 Magnesium 1.9 Total Bilirubin 0.5 AST 31 ALT 23 Alkaline Phosphatase 41 Total Protein 6.2 L Albumin 3.2 L Globulin 3.0 Albumin/Globulin Ratio 1.1 Critical Care Progress Note - Nutrition Nutrition: Nutrition Category Date Time Status Heart Healthy Diet [DIET] Diets 09/28/17 Breakfast Active Attending/Attestation - Attestation I have personally seen and examined this patient.: Yes I have fully participated in the care of the patient.: Yes I have reviewed all pertinent clinical information: Yes Notes (Text): 09/29/17 16:09 Patient seen and examined in the intensive care unit. Clinically no change Repeat CAT scan of the head and MRI showed slight increase in hematoma Patient stable for transfer to floor
--- NOTE | 2017-09-29 13:10 | MRI ---
PROCEDURE: MRI BRAIN WITHOUT CONTRAST HISTORY: SDH -TO ASSESS THE EXTEND OF THE PATHOLOGY COMPARISON: Noncontrast head CT from 09/29/2017 and 09/28/2017. TECHNIQUE: Multiplanar, multisequence MR images of the brain were obtained without intravenous contrast enhancement. FINDINGS: HEMORRHAGE: There is redemonstration of a 3.2 x 0.7 cm T1 hyperintense and T2 hypo intense right parietal convexity early subacute subdural hematoma without significant mass effect or midline shift. The hematoma has mildly increased in size since the prior CT examination from 09/28/2017. DWI: No evidence of an acute or early subacute infarction. BRAIN PARENCHYMA: There are mild chronic microangiopathic changes. There is no mass, mass effect or abnormal extra-axial fluid collection. The midline sagittal structures are normal. VENTRICLES: There is moderate age-related global parenchymal volume loss and proportionate enlargement of the ventricles and cortical sulci. CRANIUM: There is normal bone marrow signal pattern. ORBITS: Grossly unremarkable. PARANASAL SINUSES/MASTOIDS: The paranasal sinuses are predominantly clear. There right mastoid air cells are clear. There is trace left mastoid effusion. VASCULAR SYSTEM: There are normal signal voids in the larger intracranial artery. OTHER FINDINGS: None. IMPRESSION: 1. 3.2 x 0.7 cm evolving right parietal convexity subacute subdural hematoma without mass effect or midline shift, slightly increased in size since the prior CT examination from 09/28/2017. 2. Mild chronic microangiopathic changes and moderate age-related global parenchymal volume loss.
--- NOTE | 2017-09-29 15:08 | CON ---
DATE: REASON FOR CONSULTATION: Status post fall and abnormal CT scan. CHIEF COMPLAINT: The patient was brought into [facility] following his fall at home. The patient did have CT of the head because of abnormal signal. I was called in to evaluate him for further management. HISTORY OF PRESENTING ILLNESS: Mr. Aubrey Figueroa is an 82-year-old right-handed Kazakh-speaking male, presenting with history of frequent falls preceding his current fall which manifested while he was walking in the bathroom and hit his head against the table. No loss of consciousness. No bowel and bladder incontinence. No history of involuntary movements following the fall. However, he felt dizzy and headache that brought him to the hospital for further evaluation. CT of the head was performed at the [facility] that showed an elliptical-shaped hematoma suggestive of possible subdural hematoma on his right frontoparietal region. Neurosurgical attention was obtained and been followed by a neurosurgeon and reported as a nonsurgical gaze. PAST MEDICAL HISTORY: Chronic low back pain. ALLERGIES: NO KNOWN ALLERGIES. REVIEW OF SYSTEMS: The 12-point system being reviewed from neuro, frequent falls and recent head trauma with abnormal CAT scan. PERSONAL HISTORY: Denies smoking or alcohol use. MEDICATIONS: Coreg, Protonix, Tylenol with IV fluids. PHYSICAL EXAMINATION: VITAL SIGNS: Blood pressure 133/49, with mean artery pressure of 77, respiratory rate 16, temperature afebrile. GENERAL: The patient is examined in the presence of his family members. NECK: Supple. No carotid bruits. HEART: Heart sounds regular. CHEST: Fair air entry. EXTREMITIES: No edema in legs. NEUROLOGIC EXAMINATION: Mental status examination: He is awake, alert, and oriented to person and place. Speech intact only in Kazakh. Communicable only in Kazakh as well. He follows commands. No right and left confusion. Cranial nerve examination: Visual field respond to visual threat. Pupils show anisocoria. No primary gaze nystagmus as well as lateral gaze or ventricle nystagmus on eye movement chart. No tenderness over the scalp region on palpation. No facial sensory deficit. No facial asymmetry. Hearing seems to be intact. Motor examination: Outstretched hand with eyes closed, no drift noted. However, he maintains the position for more than 2 minutes as a catatonic posture. He was able to lift both lower extremities. However, pain limited exam. Some weakness more than his arms. Deep tendon reflexes: Upper extremities are absent. Lower extremities: Left knee 2+, right knee absent, both ankles are absent. Plantars are upgoing on both sides. Sensory examination: Respond to pain symmetrically on both sides. Coordination: Jorxms-zghw-ozbewk test is intact. Gait: Deferred at this time. CAT scan of the head being reviewed by me showed right frontoparietal region subdural hematoma with mild mass effect noted. Significant atrophy noted. No intraparenchymal bleed. EKG: Normal sinus rhythm. Blood workup: WBC 10.1, hemoglobin 10.7, hematocrit 31.2, platelets of 344. PT 11.1, INR 1.0, PTT 28. Sodium 139, potassium 3.7, chloride 105, bicarbonate 24, BUN 11, creatinine 0.7, GFR more than 60. Urinalysis: 1+ ketones. CONCLUSION: 1. As per neurological examination, Mr. Aubrey Figueroa has been presenting with worsening headache with preceding significant head trauma. Considering the abnormal CT of the head, the patient needs repeat CT of the head today to assess his bleeding. 2. MRA of the brain to study the extent of the subdural hematoma. 3. No antiepileptic drugs needed at present. However, the patient needs electroencephalogram to rule out any abnormal paroxysmal activities. 4. No antiplatelets for next 4 weeks. 5. I will keep him at bedrest and sequential thromboembolic disease stockings to prevent deep venous thrombosis. 6. The patient's condition has been discussed with his family members. The patient will follow closely with you. Amor Mohr MD
--- NOTE | 2017-09-29 18:52 | CARD ---
APPROVED REPORT EXAM: Two-dimensional and M-mode echocardiogram with Doppler and color Doppler. Other Information Quality : GoodRhythm : INDICATION Dizziness and Vertigo RISK FACTORS Hypertension 2D DIMENSIONS IVSd1.1 (0.7-1.1cm)LVDd4.1 (3.9-5.9cm) PWd1.2 (0.7-1.1cm)LVDs2.1 (2.5-4.0cm) FS (%) 47.3 %LVEF (%)79.2 (>50%) M-Mode DIMENSIONS Left Atrium (MM)3.85 (2.5-4.0cm)Aortic Root3.21 (2.2-3.7cm) Aortic Cusp Exc.1.86 (1.5-2.0cm) Mitral Valve MV E Juasvvaq14.6cm/sMV A Anfzbmpp105.0cm/sE/A ratio0.8 TDI E/Lateral E'0.0E/Medial E'0.0 Tricuspid Valve TR Peak Dgnsxvgn582ml/sTR Peak Gr.25mmHg LEFT VENTRICLE The left ventricle is normal size. There is borderline concentric left ventricular hypertrophy. Left ventricle systolic function is normal. The Ejection Fraction is >70%. There is normal LV segmental wall motion. Tissue Doppler imaging reveals abnormal left ventricular diastolic dysfunction. RIGHT VENTRICLE The right ventricle is normal size. There is normal right ventricular wall thickness. The right ventricular systolic function is normal. ATRIA The left atrium size is normal. The right atrium size is normal. The interatrial septum is intact with no evidence for an atrial septal defect. AORTIC VALVE The aortic valve is normal in structure. No aortic regurgitation is present. There is no aortic valvular stenosis. There is no aortic valvular vegetation. MITRAL VALVE The mitral valve is normal in structure. There is no evidence of mitral valve prolapse. There is no mitral valve stenosis. Mitral regurgitation is mild. TRICUSPID VALVE The tricuspid valve is normal in structure. There is mild tricuspid regurgitation. Right ventricular systolic pressure is estimated at 30-40 mmHg. There is mild pulmonary hypertension. PULMONIC VALVE The pulmonic valve is not well visualized. There is no pulmonic valvular regurgitation. GREAT VESSELS The aortic root is normal in size. PERICARDIAL EFFUSION There is no significant pericardial effusion. <Conclusion> Left ventricle systolic function is normal. The Ejection Fraction is >70%. Hypertensive heart disease.. Diastolic dysfunction. No aortic regurgitation is present. Mitral regurgitation is mild. There is mild tricuspid regurgitation. There is mild pulmonary hypertension. There is no pulmonic valvular regurgitation.
--- NOTE | 2017-09-29 19:05 | CP.PCM.PN ---
Subjective - Date & Time of Evaluation Date of Evaluation: 09/29/17 Time of Evaluation: 09:40 - Subjective Subjective: clinically same Objective - Vital Signs/Intake and Output Vital Signs (last 24 hours): Temp Pulse Resp BP Pulse Ox 98.2 F 74 23 120/51 L 96 09/29/17 16:00 09/29/17 18:00 09/29/17 18:00 09/29/17 17:38 09/29/17 18:00 Intake and Output: 09/29/17 09/30/17 18:59 06:59 Intake Total 900 Output Total 425 Balance 475 - Medications Medications: Current Medications Acetaminophen (Tylenol 325mg Tab) 650 mg PO Q6 PRN PRN Reason: Pain, moderate (4-7) Last Admin: 09/29/17 03:27 Dose: 650 mg Carvedilol (Coreg) 3.125 mg PO BID [facility] Last Admin: 09/29/17 17:45 Dose: 3.125 mg Pantoprazole Sodium (Protonix Susp) 40 mg PO DAILY [facility] Last Admin: 09/29/17 11:12 Dose: 40 mg - Labs Labs: 09/29/17 07:22 09/29/17 04:00 PT 11.1 SECONDS (9.7-12.2) 09/27/17 19:42 INR 1.0 09/27/17 19:42 APTT 28 SECONDS (21-34) 09/27/17 19:42 - Constitutional Appears: Well - Head Exam Head Exam: ATRAUMATIC, NORMAL INSPECTION, NORMOCEPHALIC - Eye Exam Eye Exam: EOMI, Normal appearance, PERRL Pupil Exam: NORMAL ACCOMODATION, PERRL - ENT Exam ENT Exam: Mucous Membranes Moist, Normal Exam - Neck Exam Neck Exam: Full ROM, Normal Inspection. absent: Lymphadenopathy - Respiratory Exam Respiratory Exam: Decreased Breath Sounds - Cardiovascular Exam Cardiovascular Exam: REGULAR RHYTHM, +S1, +S2 - GI/Abdominal Exam GI & Abdominal Exam: Soft, Diminished Bowel Sounds - Rectal Exam Rectal Exam: Deferred
[2017-09-30] MEDS ORDERED: Acetaminophen-Codeine 300/30 mg Tab PO STA (07:58)
[2017-09-30] MEDS: Pantoprazole 40 mg Susp UD PO SCH (10:08)
[2017-09-30 10:15] VITALS: O2SAT 96
--- NOTE | 2017-09-30 12:42 | PN ---
DATE: 09/30/2017 NEUROLOGICAL PROBLEM: Posttraumatic subdural hematoma. PHYSICAL EXAMINATION: VITAL SIGNS: Blood pressure 144/68, mean artery pressure of 93, respiratory rate 18, temperature 98.2, with a pulse rate of 75, regular. NEUROLOGIC: The patient is sleepy, arousable, communicable in Norwegian. Moves all four extremities against gravity. Left Babinski sign. The rest of the examination is unchanged. The patient's repeat CT of the head as well as MRI of the brain being reviewed. There is a 3 cm to 1 cm high right parietal subdural hematoma without any mass effect. The patient's electroencephalogram to be reviewed by me. No further workup is needed. Keep him off antiplatelets and anticoagulant for next 4 to 6 weeks. The patient should be hydrated well. Continue the present management. The patient will be followed closely while he is in the hospital. Amor Mohr MD
[2017-09-30 13:39] VITALS: TEMP 97.9
--- NOTE | 2017-09-30 16:05 | CP.PCM.PN ---
Subjective - Date & Time of Evaluation Date of Evaluation: 09/30/17 Time of Evaluation: 15:55 - Subjective Subjective: PT EVALUATED AT BEDSIDE WITH FAMILY. PT STATES HE FEELS BETTER; HAS A MILD H/A THAT WAS RELIEVED WITH TYLENOL PRN. DENIES VISUAL DISTURBANCES, DIZZINESS, CP, SOB, PALPITATIONS, ABD PAIN, N/V. ALSO ADMITS TO HAVING CONSTIPATION, LBM 3 DAYS AGO; PER PT AND FAMILY PT "ALWAYS HAS SUFFERED FROM CONSTIPATION." PT FOR D/C TODAY TO [facility] FOR REHAB FOR 1-2 WEEKS. NO ANTIPLATELETS AND ANTICOAGS FOR 4-6 WEEKS PER NEURO RECOMMENDATIONS; ALL MEDS TO BE MONITORED AND ADJUSTED BY DR. Mishel FAULKNER WHO WILL FOLLOW THE PT AT [facility] DISCUSSED OUTPATIENT F/U AND MEDS WITH THE PT AND FAMILY. WILL ALSO CONTINUE [facility]ACE FOR CONSTIPATION SO PT WON'T STRAIN. SW TO ARRANGE TRANSPORTATION THIS AFTERNOON/ EVENING TO REHAB. NO FURTHER ORDERS. Objective - Vital Signs/Intake and Output Vital Signs (last 24 hours): Temp Pulse Resp BP Pulse Ox 97.9 F 74 15 119/51 L 96 09/30/17 13:00 09/30/17 13:00 09/30/17 13:00 09/30/17 13:00 09/30/17 13:00 Intake and Output: 09/30/17 09/30/17 06:59 18:59 Intake Total 500 Output Total 520 Balance -20 - Medications Medications: Current Medications Acetaminophen (Tylenol 325mg Tab) 650 mg PO Q6 PRN PRN Reason: Pain, moderate (4-7) Last Admin: 09/30/17 13:21 Dose: 650 mg Carvedilol (Coreg) 3.125 mg PO BID [facility] Last Admin: 09/30/17 10:08 Dose: 3.125 mg Docusate Sodium (Colace) 100 mg PO TID [facility] Last Admin: 09/30/17 13:15 Dose: 100 mg Pantoprazole Sodium (Protonix Susp) 40 mg PO DAILY [facility] Last Admin: 09/30/17 10:08 Dose: 40 mg - Labs Labs: 09/29/17 07:22 09/29/17 04:00 PT 11.1 SECONDS (9.7-12.2) 09/27/17 19:42 INR 1.0 09/27/17 19:42 APTT 28 SECONDS (21-34) 09/27/17 19:42
[2017-09-30 17:35] VITALS: BP 106/43; PULSE 69; RESP 14
--- NOTE | 2017-09-30 18:43 | CP.PCM.PN ---
Subjective - Date & Time of Evaluation Date of Evaluation: 09/30/17 Time of Evaluation: 11:40 - Subjective Subjective: clinically same Objective - Vital Signs/Intake and Output Vital Signs (last 24 hours): Temp Pulse Resp BP Pulse Ox 97.9 F 69 14 106/43 L 96 09/30/17 13:00 09/30/17 17:34 09/30/17 17:34 09/30/17 17:34 09/30/17 17:34 Intake and Output: 09/30/17 09/30/17 06:59 18:59 Intake Total 500 Output Total 520 Balance -20 - Medications Medications: Current Medications Acetaminophen (Tylenol 325mg Tab) 650 mg PO Q6 PRN PRN Reason: Pain, moderate (4-7) Last Admin: 09/30/17 13:21 Dose: 650 mg Carvedilol (Coreg) 3.125 mg PO BID [facility] Last Admin: 09/30/17 17:35 Dose: 3.125 mg Docusate Sodium (Colace) 100 mg PO TID [facility] Last Admin: 09/30/17 17:35 Dose: 100 mg Pantoprazole Sodium (Protonix Susp) 40 mg PO DAILY [facility] Last Admin: 09/30/17 10:08 Dose: 40 mg - Labs Labs: 09/29/17 07:22 09/29/17 04:00 PT 11.1 SECONDS (9.7-12.2) 09/27/17 19:42 INR 1.0 09/27/17 19:42 APTT 28 SECONDS (21-34) 09/27/17 19:42 - Constitutional Appears: Well - Head Exam Head Exam: ATRAUMATIC, NORMAL INSPECTION, NORMOCEPHALIC - Eye Exam Eye Exam: EOMI, Normal appearance, PERRL Pupil Exam: NORMAL ACCOMODATION, PERRL - ENT Exam ENT Exam: Mucous Membranes Moist, Normal Exam - Neck Exam Neck Exam: Full ROM, Normal Inspection. absent: Lymphadenopathy - Respiratory Exam Respiratory Exam: Decreased Breath Sounds - Cardiovascular Exam Cardiovascular Exam: REGULAR RHYTHM, +S1, +S2 - GI/Abdominal Exam GI & Abdominal Exam: Soft, Diminished Bowel Sounds - Rectal Exam Rectal Exam: Deferred
== END 2017-09-30 21:37 | DRG 84 ==
LOC: C.ER 18:33 → C.9E 22:25 → C.6T 23:08 → C.9I 23:16
PROVIDERS: ADMIT Internal Medicine Nephrology; ATTEND Internal Medicine Nephrology
DX: S06.5X9A Traumatic subdural hemorrhage with loss of consciousness of unspecified duration, initial encounter (principal); W18.39XA Other fall on same level, initial encounter; G89.29 Other chronic pain; G31.89 Other specified degenerative diseases of nervous system; I10 Essential (primary) hypertension; K59.00 Constipation, unspecified; W22.03XA Walked into furniture, initial encounter; Z87.891 Personal history of nicotine dependence; Z91.81 History of falling